=== PATIENT | male | born 2000 | race Two or more races ===

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

== ENCOUNTER 2019-05-31 10:41 | Emergency (ER) | payer SELFPAY ==
[~2019-05-31] VITALS: Ht 175.3 cm; Wt 68.0 kg
[2019-05-31 11:38] VITALS: BP 143/97
== END 2019-05-31 12:09 | disposition home or self-care (01) ==
LOC: ER 10:41
DX: S60.562A Insect bite (nonvenomous) of left hand, initial encounter (principal); S60.561A Insect bite (nonvenomous) of right hand, initial encounter; F12.10 Cannabis abuse, uncomplicated; W57.XXXA Bitten or stung by nonvenomous insect and other nonvenomous arthropods, initial encounter; Y93.89 Activity, other specified; Y99.8 Other external cause status; Y92.89 Other specified places as the place of occurrence of the external cause